=== PATIENT | male | born 1950 | race Caucasian/White ===

== ENCOUNTER 2016-10-11 05:35 | Day surgery (SDC) | payer OTHER ==
[2016-10-10 11:05] VITALS: BMI 41.6
--- NOTE | 2016-10-10 22:11 | PREOPHP ---
DATE OF ADMISSION: 10/11/2016 HISTORY OF PRESENT ILLNESS: This 66-year-old patient is admitted for elective cataract surgery of t he left eye. The patient previously had cataract surgery on the right eye a number of years ago. T he patient also has a history of insulin-dependent diabetes mellitus for the past 10 years, history of glaucoma, a mini stroke. CURRENT MEDICATIONS: Include: 1. Aspirin (discontinued 1 week prior to surgery). 2. Atorvastatin. 3. Carvedilol. 4. Cholecalciferol. 5. Clopidogrel (discontinued 3 days prior to surgery). 6. Isosorbide. 7. Lantus. 8. Losartan. 9. Metformin. 10. Jardiance. 11. Victoza. 12. For the glaucoma the patient is currently taking timolol and latanoprost in both eyes. ALLERGIES: THERE ARE NO KNOWN ALLERGIES. PHYSICAL EXAMINATION: The visual acuity with best correction is 20/30 in the right eye and 20/50 in the left eye. Slit lamp examination reveals a posterior chamber intraocular lens in the right eye and an advanced nuclear sclerotic and early posterior subcapsular cataract in the left eye. Applana tion tonometry is 18 mmHg. Examination of the retina reveals significant optic disk cupping present in both eyes. The macular area appears within normal limits. DIAGNOSIS: Cataract, left eye. PLAN: Cataract extraction with lens implant left eye. The risks and alternatives to the surgery coombs ve been discussed with the patient as well as the hope for improvement of visual acuity leading to g reater ability to perform activities of daily living. The patient understands this and agrees to pr oceed with surgery. Dictated By: SERGEI ALBERT/ALICIA Conf#: [id number] DID#: [id number]
[2016-10-11] VITALS (7 sets, daily range): BP systolic 90–129; BP diastolic 52–74; PULSE 76–82; RESP 14–24; Ht 154.9 cm; Wt 99.3 kg
[~2016-10-11] VITALS: Ht 154.9 cm; Wt 99.3 kg
[2016-10-11] MEDS ORDERED: CEFAZOLIN 1 GM INJ ONE (06:33)
[2016-10-11] MEDS ORDERED: LIDOCAINE 4% (MPF) 5 ML INJ ONE (06:33)
[2016-10-11] MEDS ORDERED: EPINEPHrine 1 MG INJ ONE (06:34)
[2016-10-11] MEDS ORDERED: DEXAMETHASONE 4 MG/ML 1 ML INJ ONE (06:34)
[2016-10-11] MEDS ORDERED: HYALURONATE/CHONDROITIN 1ML OPH INJ ONE (06:34)
[2016-10-11] MEDS ORDERED: GENTAMICIN 80 MG INJ ONE (06:34)
[2016-10-11] MEDS ORDERED: CARBACHOL 0.01% 1.5 ML OPH INJ ONE (06:35)
[2016-10-11] MEDS ORDERED: PROPOFOL 20 ML ONE (06:50)
[2016-10-11] MEDS ORDERED: INSU300I SQ (06:58)
[2016-10-11] MEDS ORDERED: CARV12.579 PO (06:58)
[2016-10-11] MEDS ORDERED: TIMO15DR16 BOTH EYES (06:58)
[2016-10-11] MEDS ORDERED: ATOR40TA68 PO (06:58)
[2016-10-11] MEDS ORDERED: UBID50TA PO (06:58)
[2016-10-11] MEDS ORDERED: CLOP75TA4 PO (06:58)
[2016-10-11] MEDS ORDERED: DORZ10DR BOTH EYES (06:58)
[2016-10-11] MEDS ORDERED: MAGN250T5 PO (06:58)
[2016-10-11] MEDS ORDERED: LOSA100T7 PO (06:58)
[2016-10-11] MEDS ORDERED: LIRA0.6P2 SQ (06:58)
[2016-10-11] MEDS ORDERED: ASPI81TA3 PO (06:58)
[2016-10-11] MEDS ORDERED: EMPA25TA PO (06:58)
[2016-10-11] MEDS ORDERED: METF1000 PO (06:58)
[2016-10-11] MEDS ORDERED: LATA2.5D9 BOTH EYES (06:58)
[2016-10-11] MEDS ORDERED: ISOS30TA5 PO (06:58)
[2016-10-11] MEDS ORDERED: CHOL100062 PO (06:58)
[2016-10-11] MEDS ORDERED: LIDOCAINE 2% (SDV) 5 ML INJ ONE (07:00)
[2016-10-11] MEDS ORDERED: TROPICAMIDE 1% 2 ML OPH OPER SCH (07:00)
[2016-10-11] MEDS ORDERED: CYCLOPENTOLATE/PHENYLEPH 2 ML OPH OPER SCH (07:00)
[2016-10-11] MEDS ORDERED: CIPROFLOXACIN 0.3% 2.5 ML OPH OPER SCH (07:00)
[2016-10-11] MEDS ORDERED: DICLOFENAC 0.1% 2.5 ML OPH OPER SCH (07:00)
[2016-10-11 07:05] LABS: CALCIUM 9.5 mg/dl (8.4-10.2); CREATININE 1.13 mg/dl (0.44-1.00); POTASSIUM 4.5 mmol/L (3.5-5.1)
[2016-10-11] MEDS ORDERED: CEFAZOLIN 1 GM INJ INJ ONE (07:08)
[2016-10-11] MEDS ORDERED: HYALURONATE/CHONDROITIN 1ML OPH INJ IO ONE (07:08)
[2016-10-11] MEDS ORDERED: CARBACHOL 0.01% 1.5 ML OPH INJ IO ONE (07:08)
[2016-10-11] MEDS ORDERED: DEXAMETHASONE 4 MG/ML 1 ML INJ INJ ONE (07:08)
[2016-10-11] MEDS ORDERED: morphine (1 MG/ML) 10ML SYRINGE IV PRN ×3 (08:00)
[2016-10-11] MEDS ORDERED: FENTAnyl 50 MCG/ML VIAL IV PRN ×2 (08:00)
[2016-10-11] MEDS ORDERED: DIPHENHYDRAMINE 50 MG INJ IV PRN (08:00)
[2016-10-11] MEDS ORDERED: hydrALAzine 20 MG INJ IV PRN (08:00)
[2016-10-11] MEDS ORDERED: MIDAZOLAM 1 MG/ML 2 ML INJ IV PRN (08:00)
[2016-10-11] MEDS ORDERED: EPHEDrine SULFATE 50 MG/5 ML SYG IV PRN (08:00)
[2016-10-11] MEDS ORDERED: LABETALOL HCL 20MG INJ IV PRN (08:00)
[2016-10-11] MEDS ORDERED: MEPERIDINE 25 MG INJ IV PRN (08:00)
[2016-10-11] MEDS ORDERED: OXYCODONE/ACETAMINOPHEN (5/325) TAB PO PRN ×2 (08:00)
[2016-10-11] MEDS ORDERED: ATROPINE 1 MG/10 ML SYRINGE IV PRN (08:00)
[2016-10-11] MEDS ORDERED: HYDROmorphONE (0.2 MG/ML) 10ML SYG IV PRN ×3 (08:00)
[2016-10-11] MEDS ORDERED: ONDANSETRON 4 MG INJ IV PRN (08:00)
--- NOTE | 2016-10-11 09:53 | OPR ---
DATE OF OPERATION: 10/11/2016 PREOPERATIVE DIAGNOSIS: Cataract, left eye. POSTOPERATIVE DIAGNOSIS: Cataract, left eye. OPERATION PERFORMED: Cataract extraction with lens implant, left eye. SURGEON: Sergei Trotter MD ANESTHESIOLOGIST: Dr. Santos DESCRIPTION OF PROCEDURE: Patient was brought to the operating room on an eye gurney, positioned ap propriately, and attached to electrocardiogram monitoring, given oxygen via nasal cannula. After so me intravenous sedation was administered, the patient received local anesthesia using lidocaine 4% g iven in lid block and retrobulbar injection. The patient was then prepped and draped in the usual s terile manner, and a speculum was inserted between the lids of the left eye. Two paracentesis incis ions were made near the corneoscleral limbus at the 10 and 2 o'clock position using a SuperBlade. F ollowing this, a 3.0 mm keratome was used to enter the anterior chamber near the limbus through nura r cornea and a stepped scleral incision at the 12 o'clock position. An irrigating cystotome was int roduced into the anterior chamber, which was filled with DisCoVisc. Anterior capsulotomy was then p erformed. Balanced salt solution was then used for hydrodissection. Phacoemulsification of the nuc leus then proceeded using [id number] method. While the fragments were being phacoemulsified , it was noted that the chamber deepened, and a portion of the lens nucleus descended into the anter ior vitreous At this point, the phacoemulsification was stopped, and a vitrectomy instrument was bro ught to the surgical field. An anterior vitrectomy was performed, and while doing this, the remaini ng lens nucleus material floated up into the pupillary aperture. Using DisCoVisc injected by means of a cannula behind the remaining lens fragment, it was brought partially into the anterior chamber and was supported by the cannula injecting the DisCoVisc. The phacoemulsification handpiece was bro ught back to the field, and the remaining lens nucleus was emulsified. Following this, some additio nal anterior vitrectomy was required. After this had been completed, lens cortical material was asp irated in the capsular folds. It was noted that a small fragment of lens cortex floated posteriorly and was left without attempting to retrieve it. There was sufficient capsule remaining to support a posterior chamber intraocular lens. Therefore, additional DisCoVisc was injected into the anterio r chamber, and then an 18.5 diopter posterior chamber intraocular lens (Bausch and Lomb model LI61AO ) was inserted into the posterior capsule with the lens haptics placed anterior to the remaining cap yareli in the ciliary sulcus. The haptics were placed in the vertical meridian where there was the gr eatest capsular support remaining. the lens remained centered despite any external pressure on the eye. Following this, one 10-0 nylon suture was placed across the wound. Miostat was instilled to c onstrict the pupil, and then the DisCoVisc was aspirated from the anterior chamber. The suture was tied, the ends were cut short, and the knot was buried. A 0.5 mL of Ancef and a 0.5 mL of dexametha sone were injected into the sub-Tenon space in the inferior conjunctival fornix. The speculum was r emoved, Vigamox drops placed on the eye, and the eye was patched. The patient left the operating ro om in satisfactory condition. Dictated By: SERGEI ALBERT/ALICIA Conf#: [id number] DID#: [id number]
== END 2016-10-11 10:00 | disposition home or self-care (01) ==
LOC: SDS 05:35 → EDSEX 05:35 → SDS 10:00
PROVIDERS: ATTEND Ophthalmology
DX: H25.12 Age-related nuclear cataract, left eye (principal); I10 Essential (primary) hypertension; E11.9 Type 2 diabetes mellitus without complications; I25.10 Atherosclerotic heart disease of native coronary artery without angina pectoris; E66.01 Morbid (severe) obesity due to excess calories; Z68.41 Body mass index [BMI] 40.0-44.9, adult
CPT/HCPCS: 66984; 80048; 82962; J0171; J0690; J1100; J1580; V2632; Z7512; Z7610